=== PATIENT | male | born 1995 | race Caucasian/White ===

== ENCOUNTER 2017-06-12 14:00 | Emergency (ER) | payer MEDICAID ==
--- NOTE | 2017-06-12 16:49 | UC ---
Throat Pain/Nasal Bob HPI - HPI Summary HPI Summary: 21 y/o male presents to the urgent care c/o sore throat, productive cough, body ache,MONDRAGON, fever, for the past 4 days. Pt states he has Hx of asthma and has mild SOB at times . He has an episode of vomiting due to cough yesterday. He also has mild left side back pain when he coughs and sputum is green with tinged of blood. Pt denies chest pain, diarrhea, abdominal pain, neck pain. - History of Current Complaint Chief Complaint: UCGeneralIllness Stated Complaint: THROAT COMPLAINT, SOB, COUGH Time Seen by Provider: 06/12/17 16:47 Hx Obtained From: Patient Onset/Duration: Gradual Onset, Lasting Days - 4 days, Still Present, Worse Since - 2 days Severity: Moderate Pain Intensity: 5 Pain Scale Used: 0-10 Numeric Cough: Sputum Appears - yellowish with blood streaks Associated Signs & Symptoms: Positive: Sinus Discomfort, Nasal Discharge, Vomiting - 4 episodes yesterday, Other - SOB at times - Epiglottits Risk Factors Epiglottis Risk Factors: Negative - Allergies/Home Medications Allergies/Adverse Reactions: Allergies Allergy/AdvReac Type Severity Reaction Status Date / Time chicken pox vaccine Allergy Unknown Unknown Uncoded 06/12/17 15:36 Reaction Details PMH/Surg Hx/FS Hx/Imm Hx Previously Healthy: Yes Respiratory History: Asthma Neurological History: Migraine - Surgical History Surgical History: Yes Surgery Procedure, Year, and Place: chicken pox lesion drainage - Family History Known Family History: Positive: Diabetes Family History: Migraine, pancreatic CA - Social History Occupation: Employed Full-time Lives: With Family Alcohol Use: Occasionally Substance Use Type: None Smoking Status (MU): Heavy Every Day Tobacco Smoker Type: Cigarettes, Smokeless Tobacco Amount Used/How Often: 1/2 PPD AND < 3 cans/week Have You Smoked in the Last Year: Yes Review of Systems Constitutional: Negative, Fatigue, Other - decrease appetite, body aches Skin: Negative Eyes: Negative ENT: Sore Throat, Nasal Discharge, Sinus Congestion, Sinus Pain/Tenderness Respiratory: Shortness Of Breath - at times, Cough Cardiovascular: Negative Gastrointestinal: Vomiting - 4 episodes yesterday resolved today Genitourinary: Negative Motor: Negative Neurovascular: Negative Musculoskeletal: Negative Neurological: Headache Psychological: Negative Is Patient Immunocompromised?: No All Other Systems Reviewed And Are Negative: Yes Physical Exam Triage Information Reviewed: Yes Vital Signs: Initial Vital Signs Temp 98.5 F 06/12/17 15:27 Pulse 79 06/12/17 15:27 Resp 20 06/12/17 15:27 BP 132/73 06/12/17 15:27 Pulse Ox 98 06/12/17 15:27 - Additional Comments VITAL SIGNS: Reviewed. GENERAL: Patient is a well developed and nourished male who is sitting comfortable in the examining table. Patient is not in any acute respiratory distress. HEAD AND FACE: No signs of trauma. No ecchymosis, hematomas or skull depressions. No sinus tenderness. EYES: PERRLA, EOMI x 2, No injected conjunctiva, no nystagmus. No photophobia. EARS: Hearing grossly intact. Ear canals and tympanic membranes are within normal limits. Nose: edematous, erythematous nasal mucosa with green nasal discharge MOUTH: Positive pharynx with erythema, no exudates, mild palatal petechiae. mild B/L tonsillar enlargement with no exudate. Uvula in midline. NECK: Supple, trachea is midline, Positive anterior cervical lymphadenopathy, no JVD, no carotid bruit, no c-spine tenderness, neck with full ROM. No meningeal signs, no Kernig's or brudzinskis signs. CHEST: Symmetric, no tenderness at palpation LUNGS: Positive breath sound, mild B/L rhonchi on examination, no wheezing or crackles. CVS: Regular rate and rhythm, S1 and S2 present, no murmurs or gallops appreciated. ABDOMEN: Soft, non-tender. No signs of distention. No rebound no guarding, and no masses palpated. Bowel sounds are normal. EXTREMITIES: FROM in all major joints, no edema, no cyanosis or clubbing. NEURO: Alert and oriented x 3. No acute neurological deficits. Speech is normal and follows commands. SKIN: Dry and warm Throat Pain/Nasal Course/Dx - Course Course Of Treatment: 21 y/o male presents to the urgent care c/o sore throat, productive cough, body ache,MONDRAGON, fever, for the past 4 days. Pt states he has Hx of asthma and has mild SOB at times . He has an episode of vomiting due to cough yesterday. He also has mild left side back pain when he coughs and sputum is green with tinged of blood. Pt denies chest pain, diarrhea, abdominal pain, neck pain. Hx obtained. Pt with pharyngitis and mild rhonchi on B/L posterior lungs on examination. Rapid strep ordered, result: negative.Influenza A&B ordered: result:Negative. Pt will Tx for acute bronchitis, Rx Z-jay, albuterol inhaler, Delsym and ibuprofen PO to alleviates symptoms. Advised on hand washing and wear a mask to avoid spreading. Pt advised to rest, increase fluid intake, eat well and avoid strenuous exercise. If symptoms do not improve or worsen advised to return to the urgent care or f/u with her PCP for further evaluation and treatment. Pt understood and agreed with plan of care. - Differential Dx/Diagnosis Differential Diagnosis/HQI/PQRI: Influenza, Laryngitis, Mononucleosis, Pharyngitis, Tonsillitis, URI, Other - pneumonia Provider Diagnoses: 1- Acute bronchitis. 2-Cough Discharge - Discharge Plan Condition: Stable Disposition: HOME Prescriptions: Albuterol HFA INHALER* [Ventolin HFA Inhaler*] 1 - 2 puff INH Q4H PRN #1 mdi PRN Reason: Cough Azithromyxin JAY (NF) [Z-Jay (Zithromax) 250 mg tabs #6] 2 tab PO .TODAY, THEN 1 DAILY #6 tab Ibuprofen TAB* [Motrin TAB* 800 MG] 800 mg PO Q6H PRN #20 tab PRN Reason: Pain Ynoniolwpwdde-Vo-PT W/ APAP [Delsym Cough + Cold D... [id number] mg/10Ml] 20 ml PO TID #1 bottle Patient Education Materials: Acute Bronchitis (ED) Forms: *Work Release Referrals: [facility] [Outside] - 2 Days Additional Instructions: 1-Please take full course of antibiotic to avoid resistance. 2-Take Delsym PO as directed and use the albuterol inhaler to alleviate cough. Increase fluid intake, rest and eat well. 3- If symptoms do not improve or worsen or your develop SOB with fever and severe wheezing please go immediately to the ER further evaluation and treatment. 4- F/u with your PCP in 2-3 days if symptoms are not improving
[2017-06-12 17:44] VITALS: BP 109/82
== END 2017-06-12 17:45 | disposition home or self-care (01) ==
LOC: UCCORT 14:00
DX: J20.9 Acute bronchitis, unspecified (principal); R05 Cough; R11.10 Vomiting, unspecified; R09.81 Nasal congestion; J45.909 Unspecified asthma, uncomplicated; G43.909 Migraine, unspecified, not intractable, without status migrainosus; Z88.7 Allergy status to serum and vaccine; F17.210 Nicotine dependence, cigarettes, uncomplicated; F17.220 Nicotine dependence, chewing tobacco, uncomplicated
CPT/HCPCS: 87502; 87651; 99212; G0463